=== PATIENT | male | born 1940 | race Caucasian/White ===

== ENCOUNTER 2019-03-05 13:16 | Observation (INO) | payer MEDICARE, OTHER ==
[2019-03-05 13:54] LABS: HEMATOCRIT 41.1 % (37.9-51.0); HEMOGLOBIN 13.5 g/dL (13.5-17.0); MEAN CORPUSCULAR HEMOGLOBIN 29.5 pg (27.0-33.4); MEAN CORPUSCULAR HGB CONC 32.9 g/dL (32.0-36.0); MEAN CORPUSCULAR VOLUME 90 fl (80-97); PLATELET COUNT 182 10^3/uL (150-450); RED BLOOD COUNT 4.59 10^6/uL (4.35-5.55); RED CELL DISTRIBUTION WIDTH 13.5 % (11.5-14.0); WHITE BLOOD COUNT 23.1 10^3/uL (4.0-10.5)
[2019-03-05 14:05] LABS: ALBUMIN 4.4 g/dL (3.5-5.0); ALKALINE PHOSPHATASE 85 U/L (38-126); ANION GAP 13 (5-19); ASPARTATE AMINO TRANSFERASE 24 U/L (17-59); BILIRUBIN,DIRECT 0.2 mg/dL (0.0-0.4); BILIRUBIN,TOTAL 0.7 mg/dL (0.2-1.3); BLOOD UREA NITROGEN 16 mg/dL (7-20); CALCIUM 9.5 mg/dL (8.4-10.2); CARBON DIOXIDE 27 mmol/L (22-30); CHLORIDE 101 mmol/L (98-107); CREATINE KINASE 103 U/L (55-170); GLUCOSE 103 mg/dL (75-110); POTASSIUM 4.5 mmol/L (3.6-5.0); TOTAL PROTEIN 7.5 g/dL (6.3-8.2)
[2019-03-05 14:15] LABS: CREATINE KINASE MB 1.76 ng/mL (<4.55)
[2019-03-05 14:16] LABS: TROPONIN I < 0.012 ng/mL
[2019-03-05 14:20] LABS: ABSOLUTE LYMPHOCYTES# (MANUAL) 1.6 10^3/uL (0.5-4.7); ABSOLUTE MONOCYTES # (MANUAL) 0.7 10^3/uL (0.1-1.4); BASOPHILS % (MANUAL) 0 % (0-2); EOSINOPHILS % (MANUAL) 2 % (0-6); LYMPHOCYTES % (MANUAL) 7 % (13-45); MONOCYTES % (MANUAL) 3 % (3-13); SEGMENTED NEUTROPHILS % (MAN) 88 % (42-78); TOTAL CELLS COUNTED 100
[2019-03-05 14:21] LABS: PLATELET COMMENT ADEQUATE; TOXIC GRANULATION 1+
--- NOTE | 2019-03-05 14:51 | RADIOLOGY REPORT (SQ) ---
EXAM DESCRIPTION: CHEST SINGLE VIEW COMPLETED DATE/TIME: 03/05/2019 2:39 pm REASON FOR STUDY: chest pain COMPARISON: None. EXAM PARAMETERS: NUMBER OF VIEWS: One view. TECHNIQUE: Single frontal radiographic view of the chest acquired. RADIATION DOSE: NA LIMITATIONS: None. FINDINGS: LUNGS AND PLEURA: Hyperlucent lungs are suggestive of emphysema. There is mild atelectasi s at the left lung base. No pleural effusion or pneumothorax. MEDIASTINUM AND HILAR STRUCTURES: No masses. Contour normal. HEART AND VASCULAR STRUCTURES: The heart is mildly enlarged. No overt vascular congestion. BONES: No acute findings. HARDWARE: None in the chest. IMPRESSION: Mild cardiomegaly. Emphysema. Mild left basilar atelectasis. TECHNICAL DOCUMENTATION: JOB ID: [id number] [id number] 2010 [employer]- All Rights Reserved Reading location - IP/workstation name: [email or web address]
--- NOTE | 2019-03-05 15:04 | ER Document Report ---
ED Cardiac - General TRAVEL OUTSIDE OF THE [place] IN LAST 30 DAYS: No - Related Data Home Medications: PT HAS MED LIST. <FREIDA LUX - Last Filed: 03/05/19 17:26> <DIONICIO SARGENT IV - Last Filed: 03/06/19 00:32> - General Chief Complaint: Chest Pain Stated Complaint: CHEST PAIN Time Seen by Provider: 03/05/19 15:00 - HPI Notes: 78 white male with history of pernicious anemia, hypertension, hyperlipidemia, depression on Wellbutrin, history of esophageal dilatation procedure per over a year ago secondary to difficulty with narrowed esophagus but who presents today with an episode of chest pain earlier in the day. He ate Cheerios this morning and then drove to bahai once he was in [place] after he had walked from the car and to into the service he noted some chest pain anteriorly he says that it was consistent not wavering in intensity or location during the entire service did not change with standing up or sitting down leaning forward. He denies any near or passing out. No palpitations. He then walked back to his car and drove home he said that did not make his symptoms worse and it did not make him have any feelings of shortness of breath, but then he did vomit twice once home. He said the chest pain did not change but was still present and so asked his if you to call EMS and EMS gave him 2 nitroglycerin he thinks that did improve his chest pain. He also received aspirin 324. Since he has been in the ER he has not had any pain. says that he has overall been in stable health he had a prostate biopsy about a week ago and that result is pending but patient and are able to co rroborate he has been not having any fevers chills sweats no difficulty laying flat no falls at all or any other trauma. No new cognitive issues or declines in function. has noted over time in the last few months that he does have some issues with swallowing his food, particularly ibuprofen speech sandwich the other day which said he had to going to the bathroom and ultimately was able to cough back up. She says that they need to follow-up with the GI doctors who dilated his esophagus because overall he does not have problems with eating but if he gets doing into much of a hurry he does and she wonders if the narrowing might be returning in some degree. He has no history of smoking, diabetes. (FREIDA LUX) - Related Data Allergies/Adverse Reactions: No Known Allergies Allergy (Unverified 03/05/19 14:00) Past Medical History - General Information source: Patient, Relative - Daughter and granddaughter. Very good historians no is extensive medical history and have access to his online portal showing previous labs at [facility], Outside Facility Records - Social History Smoking Status: Never Smoker Frequency of alcohol use: None Drug Abuse: None Lives with: Family Family History: None - Mom of liver cancer, father had chronic lung disease Patient has suicidal ideation: No Patient has homicidal ideation: No - Past Medical History Cardiac Medical History: Reports: Hx Hypercholesterolemia, Hx Hypertension Psychiatric Medical History: Reports: Hx Depression - TAKES MEDS Past Surgical History: Reports: Hx Cholecystectomy <FREIDA LUX - Last Filed: 03/05/19 17:26> Review of Systems - Review of Systems Constitutional: No symptoms reported EENT: See HPI, Difficulty swallowing Cardiovascular: See HPI Respiratory: No symptoms reported Gastrointestinal: See HPI, Vomiting. denies: Abdomen distended, Abdominal pain, Diarrhea, Nausea, Constipation - Bowel movements been regular last bowel movement was earlier this morning prior to leaving for bahai, Blood streaked bowels, Poor appetite, Poor fluid intake, Black stools, Rectal bleeding Genitourinary: No symptoms reported Male Genitourinary: No symptoms reported Musculoskeletal: No symptoms reported Skin: No symptoms reported Hematologic/Lymphatic: No symptoms reported Neurological/Psychological: No symptoms reported <FREIDA LUX - Last Filed: 03/05/19 17:26> Physical Exam - Vital signs Interpretation: Tachycardic - Borderline, 90s to 100. Unknown baseline blood pressures.. No: Hypertensive, Hypoxic, Tachypneic, Febrile - General General appearance: Appears well, Alert In distress: None - HEENT Head: Normocephalic, Atraumatic Eyes: Normal. No: Pale conjunctiva, Scleral icterus Conjunctiva: Normal Cornea: Normal Extraocular movements intact: Yes Eyelashes: Normal Pupils: PERRL Hearing loss: Sensorineural loss Sinus: No: Swelling, Tenderness Nasal: No: Carlos deformity, Purulent discharge Mouth/Lips: Normal. No: Lesions Mucous membranes: Dry Pharynx: Normal. No: Erythema, Tonsillar hypertrophy, Uvular edema Neck: Supple. No: Lymphadenopathy, Neck mass, Thyroid nodule, Thyromegally - Respiratory Respiratory status: No respiratory distress. No: Respiratory distress, Cyan osis, Depressed respirations, Retractions, Tachypnea Chest status: Nontender. No: Tender, Ecchymosis, No pleuritic chest pain, Pain on movement, Pain with deep breathing, Wounds, Accessory muscle use, Prolonged expirations Breath sounds: Normal Chest palpation: Normal - Cardiovascular Rhythm: Regular Heart sounds: Normal auscultation - Quiet precordium Murmur: No Pulses: Normal: Radial, Dorsalis pedis Normal capillary refill: Yes - Abdominal Inspection: Normal Distension: No distension Bowel sounds: Normal Tenderness: Nontender Organomegaly: No organomegaly - Back Back: Normal, Nontender. No: Deformity/step-off, CVA tenderness, Vertebra tenderness, Wounds - Extremities General upper extremity: Normal inspection, Nontender, Normal color, Normal ROM, Normal temperature General lower extremity: Normal inspection, Nontender, Normal color, Normal ROM, Normal temperature, Normal weight bearing. No: Min's sign - Neurological Neuro grossly intact: Yes Cognition: Normal Orientation: AAOx4 Joel Coma Scale Eye Opening: Spontaneous Joel Coma Scale Verbal: Oriented [place] Coma Scale Motor: Obeys Commands [place] Coma Scale Total: 15 Speech: Normal Motor strength normal: LUE, RUE, LLE, RLE Sensory: Normal - Psychological Associated symptoms: Normal affect - Makes jokes interactive pleasant patient. Makes jokes with family members., Normal mood - Skin Skin Temperature: Warm Skin Moisture: Dry Skin Color: Normal. negative: Dusky, Plethora Skin irregularity: negative: Lesion, Rash <FREIDA LUX - Last Filed: 03/05/19 17:26> - Vital signs Vitals: BP 115/61 03/05/19 13:28 Course - Laboratory Result Diagrams: 03/05/19 12:37 03/05/19 12:37 <FREIDA LUX - Last Filed: 03/05/19 17:26> - Laboratory Result Diagrams: 03/05/19 12:37 03/05/19 12:37 <DIONICIO SARGENT IV - Last Filed: 03/06/19 00:32> - Re-evaluation Re-evalutation: 03/05/19 15:01 EKG today is sinus tachycardia rate of 108 there is no prior for comparison yasmine lopez to me. The axis is leftward. QRS slightly delayed over 128 suggestive of right bundle branch block. Voltage within normal limits no ST elevations depressions or other signs of ischemia. Daughter is very great historian she says she has a history of right bundle branch block. Granddaughter is also able to pull up his last labs from July 2018 at [facility] that show his creatinine at 1.9 his GFR 40, white count of 9.9. Here his white count was markedly elevated with a white shift total leukocytes of 23. His other cell lines were within normal limits including H&H. His first troponin was undetectable. He continued to have no pain while in the emergency department. His initial 1 view chest x-ray was unremarkable do not see any consolidation or hu cardiomegaly again no comparison available. No effusions. Pending lateral view and urinalysis to consider reasons for this markedly go cytosis. His heart score is 3 and overall his story is on multiple confirmations with patient and family does not seem exertional in nature though still was associated with vomiting "improved with nitroglycerin". Signout to Dr. Parks as follow-up the chest x-ray serial troponin and EKG t hus second view of the chest x-ray and if all these are negative and do not have a good explanation of the leukocytosis from a cyst symptom standpoint if he is able to walk around the emergency department a few times with nurse on monitor has no symptoms return I am comfortable with his patient follow-up given he is connected with [facility] and his daughters and family are very involved in his care and follow-up. They are going to follow-up overall about his slowly increasing issues with swallowing foods but today I do not think that is necessarily the issue there is no evidence of aspiration pneumonitis or pneumonia. I have extensively talked to them though about the high white count being new and that we need to continue the work-up to make sure that is not due to something we can find right now in the urine or on the chest x-ray but it will be a close monitoring and watch game in the next day or 2 to ensure that there is no new symptoms like fever chills sweats worsening any pain at all any nausea or vomiting all in order to keep him out of the hospital but make sure that we are not taking any worse returns at all the next day. He does have evidence of urine infection, I would also be comfortable with discharge and outpatient antibiotic as long as were able to walk him without any symptoms at all and he still has no fevers and his vital signs are in stable and mild tachycardia improves after 500 cc of fluid. 03/05/19 17:33 (FREIDA LUX) 03/06/19 00:31 Results of lipase and CT of the abdomen discussed with patient and patient's significant other. Question was asked by this MD if they were still willing to be admitted for observation given the patient's chest pain, elevated white count, relief of chest pain with nitroglycerin. They agreed to admission. (DIONICIO SARGENT IV) - Vital Signs Vital signs: Temp Pulse Resp BP Pulse Ox 98.5 F 98 23 H 115/62 93 03/05/19 18:06 03/05/19 22:13 03/05/19 22:09 03/05/19 22:09 03/05/19 22:13 - Laboratory Laboratory results interpreted by me: 03/05/19 03/05/19 03/05/19 12:37 12:37 16:44 WBC 23.1 H Seg Neuts % (Manual) 88 H Lymphocytes % (Manual) 7 L Abs Neuts (Manual) 20.3 H Creatinine 1.70 H Est GFR ( Amer) 48 L Est GFR (MDRD) Non-Af 39 L Urine Ketones TRACE H Urine Urobilinogen 2.0 H Discharge <FREIDA LUX - Last Filed: 03/05/19 17:26> - Discharge Admitting Provider: Dmitriy (Hospitalist) <DIONICIO SARGENT IV - Last Filed: 03/06/19 00:32> - Discharge Clinical Impression: Chest pain, Vomiting, Leukocytosis, Chronic renal disease, stage 3, moderately decreased glomerular filtration rate (GFR) between 30-59 mL/min/1.73 square meter Condition: Fair Disposition: ADMITTED OBSERVATION
[2019-03-05] MEDS ORDERED: RINGERS SOLUTION,LACTATED 500 ML IV ONE (16:56)
[2019-03-05 17:06] LABS: APPEARANCE,URINE CLEAR; BILIRUBIN,URINE NEGATIVE (NEGATIVE); COLOR,URINE YELLOW; GLUCOSE, URINE NEGATIVE (NEGATIVE); KETONES,URINE TRACE mg/dL (NEGATIVE); LEUKOCYTE ESTERASE,URINE NEGATIVE (NEGATIVE); NITRITE,URINE NEGATIVE (NEGATIVE); PROTEIN,URINE NEGATIVE (NEGATIVE); URINE SPECIFIC GRAVITY 1.016
--- NOTE | 2019-03-05 17:11 | RADIOLOGY REPORT (SQ) ---
EXAM DESCRIPTION: CHEST 2 VIEWS COMPLETED DATE/TIME: 03/05/2019 4:51 pm REASON FOR STUDY: chest pain COMPARISON: Chest x-ray 03/05/2019 at 14:23 hours EXAM PARAMETERS: NUMBER OF VIEWS: two views TECHNIQUE: Digital Frontal and Lateral radiographic views of the chest acquired on 03/05/2019 at 16:48 hours. RADIATION DOSE: NA LIMITATIONS: none FINDINGS: LUNGS AND PLEURA: No consolidation, pneumothorax or pleural effusion. MEDIASTINUM AND HILAR STRUCTURES: No masses or contour abnormalities. HEART AND VASCULAR STRUCTURES: The heart is mildly enlarged. No overt vascular congestion. BONES: Multilevel degenerative changes at the spine. Remote deformities at the left ribs. HARDWARE: Surgical clips are noted at the right upper quadrant. IMPRESSION: Mild cardiomegaly. No consolidation or pleural effusion. TECHNICAL DOCUMENTATION: JOB ID: [id number] [id number] 2010 [employer]- All Rights Reserved Reading location - IP/workstation name: [email or web address]
[2019-03-05] MEDS ORDERED: NORMAL SALINE 500 ML IV ONE (21:45)
--- NOTE | 2019-03-05 23:43 | EKG REPORT ---
SEVERITY:- ABNORMAL ECG - SINUS TACHYCARDIA RBBB AND LAFB : Confirmed by: Doris Vick MD 05-Mar-2019 23:41:45
--- NOTE | 2019-03-05 23:50 | RADIOLOGY REPORT (SQ) ---
EXAM DESCRIPTION: CT abdomen and pelvis without contrast CLINICAL HISTORY: 78 years Male, nausea, vomiting, chest pain COMPARISON: None. TECHNIQUE: Axial images of the abdomen and pelvis were performed without the use of intravenous contrast, with sagittal and coronal reformatted images. This exam was performed according to our departmental dose-optimization program which includes use of Automated Exposure Control, adjustment of the mA and/or kV according to patient size and/or use of iterative reconstruction technique. FINDINGS: There is diverticulosis without diverticulitis. There are atherosclerotic changes involving the abdominal aorta, but there is no aneurysm. The appendix appears normal. No evidence of bowel obstruction. There is no significant radiographic abnormality of the liver, spleen, pancreas, adrenal glands or kidneys. There is a small left renal cyst. There is mild bibasilar atelectasis. There is a micronodule at the anterior right lung base. IMPRESSION: No acute finding. Other findings as described.
[2019-03-06] MEDS ORDERED: ACETAMINOPHEN 325 MG TABLET PO PRN (00:56)
[2019-03-06] MEDS ORDERED: MAG HYDROX/AL HYDROX/SIMETH SUSP 30 ML UDCUP PO PRN (00:56)
[2019-03-06] MEDS ORDERED: NITROGLYCERIN 0.4 MG/TAB 25 TAB/BOTTLE SL PRN (00:56)
[2019-03-06 02:03] LABS: CHOLESTEROL 110.18 mg/dL (0-200); TRIGLYCERIDES 84 mg/dL (<150)
[2019-03-06 02:15] LABS: DIRECT LDL 59 mg/dL (<100)
--- NOTE | 2019-03-06 04:21 | PDOC H&P ---
History of Present Illness Admission Date/PCP: 03/06/19 01:12 Patient complains of: Chest pain History of Present Illness: MANUEL CARRINGTON is a 78 year old male with a past medical history of hypertension, right bundle branch block and chronic kidney disease who presents with 2 hours of dull 3 out of 5 nonradiating chest pain occurring [facility] associated with nausea and vomiting of gastric content and diaphoresis. There is no palpitations or shortness of breath however his pain was relieved by nitroglycerin by EMS. In the emergency room he remains pain-free and is found to have leukocytosis of 23,000 a creatinine at baseline, unremarkable CT a bdomen. Patient denies previous episode, fever, cough, constipation or diarrhea. He states he feels great he has had troponins below detected level but is referred to the hospitalist for observation. Past Medical History Cardiac Medical History: Reports: Hyperlipidema, Hypertension Renal/ Medical History: Reports: Chronic Kidney Disease Psychiatric Medical History: Reports: Depression - TAKES MEDS Hematology: Reports: Anemia - PERNICIOUS ANEMIA Past Surgical History Past Surgical History: Reports: Cholecystectomy Social History Information Source: Patient Lives with: Family Smoking Status: Never Smoker Frequency of Alcohol Use: None Drugs: None - Advance Directive Resuscitation Status: Full Code Family History Family History: Hypertension Parental Family History Reviewed: Yes Children Family History Reviewed: Yes Sibling(s) Family History Reviewed.: Yes Medication/Allergy Home Medications: Bupropion HCl [Wellbutrin Xl 150 mg 24hr Tablet] 1 tab PO DAILY 03/05/19 Cholecalciferol (Vitamin D3) [Vitamin D3 1000 unit Chewable Tablet] 1,000 unit PO DAILY 03/05/19 Folic Acid 1 mg PO DAILY 03/05/19 Lisinopril [Prinivil 10 mg Tablet] 5 mg PO DAILY 03/05/19 [place]-3 Fatty Acids/Fish Oil [Fish Oil 1,000 mg Capsule] 1,000 mg PO TID 03/05/19 Omeprazole Magnesium [Prilosec Otc] 20 mg PO DAILY 03/05/19 Spironolactone [Aldactone 25 mg Tablet] 25 mg PO DAILY 03/05/19 Ubidecarenone [Coq-10] 100 mg PO DAILY 03/05/19 Allergies/Adverse Reactions: No Known Allergies Allergy (Unverified 03/05/19 14:00) Review of Systems Constitutional: ABSENT: chills, fever(s), headache(s), weight gain, weight loss Eyes: ABSENT: visual disturbances Ears: ABSENT: hearing changes Cardiovascular: ABSENT: chest pain, dyspnea on exertion, edema, orthropnea, palpitations Respiratory: ABSENT: cough, hemoptysis Gastrointestinal: ABSENT: abdominal pain, constipation, diarrhea, hematemesis, hematochezia, nausea, vomiting Genitourinary: ABSENT: dysuria, hematuria Musculoskeletal: ABSENT: joint swelling Integumentary: ABSENT: rash, wounds Neurological: ABSENT: abnormal gait, abnormal speech, confusion, dizziness, focal weakness, syncope Psychiatric: ABSENT: anxiety, depression, homidical ideation, suicidal ideation Endocrine: ABSENT: cold intolerance, heat intolerance, polydipsia, polyuria Hematologic/Lymphatic: ABSENT: easy bleeding, easy bruising Physical Exam Vital Signs: Temp Pulse Resp BP Pulse Ox 98.6 F 88 18 112/63 100 03/06/19 01:32 03/06/19 01:32 03/06/19 01:32 03/06/19 01:32 03/06/19 01:32 Intake & Output 03/04/19 03/05/19 03/06/19 11:59 11:59 11:59 Intake Total 500 Balance 500 Weight 60.3 kg General appearance: PRESENT: no acute distress, well-developed, well-nourished Head exam: PRESENT: atraumatic, normocephalic Eye exam: PRESENT: conjunctiva pink, EOMI, PERRLA. ABSENT: scleral icterus Ear exam: PRESENT: normal external ear exam Mouth exam: PRESENT: moist, tongue midline Neck exam: ABSENT: carotid bruit, JVD, lymphadenopathy, thyromegaly Respiratory exam: PRESENT: clear to auscultation kai. ABSENT: rales, rhonchi, w heezes Cardiovascular exam: PRESENT: RRR. ABSENT: diastolic murmur, rubs, systolic murmur Pulses: PRESENT: normal dorsalis pedis pul Vascular exam: PRESENT: normal capillary refill GI/Abdominal exam: PRESENT: normal bowel sounds, soft. ABSENT: distended, guarding, mass, organolmegaly, rebound, tenderness Rectal exam: PRESENT: deferred Extremities exam: PRESENT: full ROM. ABSENT: calf tenderness, clubbing, pedal edema Neurological exam: PRESENT: alert, awake, oriented to person, oriented to place, oriented to time, oriented to situation, CN II-XII grossly intact. ABSENT: motor sensory deficit Psychiatric exam: PRESENT: appropriate affect, normal mood. ABSENT: homicidal ideation, suicidal ideation Skin exam: PRESENT: dry, intact, warm. ABSENT: cyanosis, rash Results Laboratory Results: 03/05/19 12:37 03/05/19 12:37 03/05/19 03/05/19 03/05/19 12:37 12:37 12:37 WBC 23.1 H RBC 4.59 Hgb 13.5 Hct 41.1 MCV 90 MCH 29.5 MCHC 32.9 RDW 13.5 Plt Count 182 Seg Neutrophils % Not Reportable Sodium 140.7 Potassium 4.5 Chloride 101 Carbon Dioxide 27 Anion Gap 13 BUN 16 Creatinine 1.70 H Est GFR ( Amer) 48 L Glucose 103 Calcium 9.5 Total Bilirubin 0.7 AST 24 Alkaline Phosphatase 85 Total Protein 7.5 Albumin 4.4 Triglycerides Cholesterol LDL Cholesterol Direct VLDL Cholesterol HDL Cholesterol Lipase 173.2 TSH Urine Color Urine Appearance Urine pH Ur Specific [place] Urine Protein Urine Glucose (UA) Urine Ketones Urine Blood Urine Nitrite Ur Leukocyte Esterase Urine WBC (Auto) Urine RBC (Auto) 03/05/19 03/06/19 03/06/19 16:44 01:15 01:15 WBC RBC Hgb Hct MCV MCH MCHC RDW Plt Count Seg Neutrophils % Sodium Potassium Chloride Carbon Dioxide Anion Gap BUN Creatinine Est GFR ( Amer) Glucose Calcium Total Bilirubin AST Alkaline Phosphatase Total Protein Albumin Triglycerides 84 Cholesterol 110.18 LDL Cholesterol Direct 59 VLDL Cholesterol 17.0 HDL Cholesterol 39 L Lipase TSH 2.46 Urine Color YELLOW Urine Appearance CLEAR Urine pH 6.0 Ur Specific [place] 1.016 Urine Protein NEGATIVE Urine Glucose (UA) NEGATIVE Urine Ketones TRACE H Urine Blood NEGATIVE Urine Nitrite NEGATIVE Ur Leukocyte Esterase NEGATIVE Urine WBC (Auto) 1 Urine RBC (Auto) 2 03/05/19 03/05/19 03/05/19 12:37 12:37 13:38 Creatine Kinase 103 CK-MB (CK-2) 1.76 Troponin I < 0.012 < 0.012 03/05/19 03/06/19 17:55 01:15 Creatine Kinase CK-MB (CK-2) Troponin I < 0.012 < 0.012 Impressions: Chest X-Ray 03/05/19 16:00 IMPRESSION: Mild cardiomegaly. No consolidation or pleural effusion. Abdomen/Pelvis CT 03/05/19 22:31 IMPRESSION: No acute finding. Other findings as described. Assessment and Plan - Diagnosis (1) Atypical chest pain Is this a current diagnosis for this admission?: Yes Plan: Atypical chest pain though the patient's pain is atypical there are multiple risk factors for coronary artery disease and subsequently will observe and evaluation of acute coronary syndrome versus coronary artery disease with anginal equivalents. Cardiac monitoring blood pressure Q6 hours ,TSH, lipid profile, serial cardiac enzymes and cardiac stress test (2) Chronic renal disease, stage 3, moderately decreased glomerular filtration rate (GFR) between 30-59 mL/min/1.73 square meter Is this a current diagnosis for this admission?: Yes Plan: Avoid nephrotoxic meds and doses, follow-up chemistry (3) Leukocytosis Is this a current diagnosis for this admission?: Yes Plan: Possibly a stress reaction to nausea vomiting. No fever or bandemia, follow-up CBC
[2019-03-06 08:16] LABS: ABSOLUTE BASOPHILS # (AUTO) 0.1 10^3/uL (0.0-0.2); ABSOLUTE EOSINOPHILS # (AUTO) 0.1 10^3/uL (0.0-0.6); ABSOLUTE LYMPHOCYTES (AUTO) 1.9 10^3/uL (0.5-4.7); ABSOLUTE MONOCYTES (AUTO) 1.5 10^3/uL (0.1-1.4); ABSOLUTE NEUT (AUTO) 8.9 10^3/uL (1.7-8.2); BASOPHILS % (AUTO) 0.4 % (0-2); EOSINOPHILS % (AUTO) 1.1 % (0-6); HEMATOCRIT 36.7 % (37.9-51.0); LYMPHOCYTES % (AUTO) 15.4 % (13-45); MEAN CORPUSCULAR HEMOGLOBIN 29.3 pg (27.0-33.4); MEAN CORPUSCULAR HGB CONC 32.8 g/dL (32.0-36.0); MEAN CORPUSCULAR VOLUME 90 fl (80-97); MONOCYTES % (AUTO) 12.1 % (3-13); PLATELET COUNT 149 10^3/uL (150-450); RED CELL DISTRIBUTION WIDTH 13.5 % (11.5-14.0); TOTAL CELLS COUNTED % (AUTO) 100 %; WHITE BLOOD COUNT 12.5 10^3/uL (4.0-10.5)
[2019-03-06 08:33] LABS: ANION GAP 9 (5-19); BLOOD UREA NITROGEN 16 mg/dL (7-20); CALCIUM 8.8 mg/dL (8.4-10.2); CARBON DIOXIDE 26 mmol/L (22-30); CHLORIDE 104 mmol/L (98-107); GLUCOSE 91 mg/dL (75-110)
[2019-03-06] MEDS ORDERED: LISINOPRIL 10 MG TABLET PO SCH (10:00)
[2019-03-06] MEDS ORDERED: (PENDING PHARMACY ID) (Bupropion Hcl [Wellbutrin Xl 150 Mg 24hr Tablet] 1 TAB) PO SCH (10:00)
[2019-03-06] MEDS ORDERED: BUPROPION HCL 75 MG TABLET PO SCH (10:00)
[2019-03-06] MEDS ORDERED: ASPIRIN 81 MG TABLET, ENT COATED PO SCH (10:00)
[2019-03-06] MEDS ORDERED: REGADENOSON INJ 0.4 MG/5 ML DISP.SYRIN IV ONE (10:56)
[2019-03-06 18:06] VITALS: BP 110/60
--- NOTE | 2019-03-06 21:39 | DRAGON STRESS TEST REPORT ---
Intravenous Lexiscan Cardiolite stress test using single photon emmision computerized tomography. Date of procedure: 03/06/2019. Ordering Provider: Dr. Omega Izaguirre.Patient's status In Patient Indication: Chest pain. Coronary risk factors: Age, hypertension, and dyslipidemia. Resting EKG: Sinus Rhythm. Right Bundle Branch Block pattern. Stress EKG: No changes of ischemia. The patient has no chest pain or discomfort, and there were no arrhythmias seen. Reason for termination: Protocol. Conclusions: Normal EKG and hemodynamic response to IV Lexiscan. Nuclear data: At rest the patient was given 10.80 millicuries of technetium 99m sestamibi injected intravenously. As per protocol rest non gated SPECT images were obtained. Subsequently the patient was given intravenous Lexiscan at a dose of 0.4 mg in 5 mL intravenously, followed by flush with normal saline. Subsequently the stress dose of 31.5 millicuries of technetium 99m sestamibi was injected intravenously. As per protocol stress gated images were obtained. Nuclear interpretation: Review of images showed that there is a mild soft tissue attenuation artifact due to bowel contamination involving both the rest and stress images of the inferior wall. This area has normal motion contraction thickening, and incidence of soft tissue attenuation artifact. The rest of the segments of the myocardium had normal perfusion at rest, and normal perfusion post stress with IV Lexiscan. All segments of the myocardium had normal motion, contraction, and thickening by gated study. T. I D. ratio was read by the computer as abnormal at 1.37. This is not reliable. Visually the T IE ratio is normal there is no transient ischemic dilatation of the left ventricle. Computer read rest, and stress left ventricular ejection fraction were 65 %, and 59 %, respectively. Conclusion: 1. There is no scintigraphic evidence of Lexiscan induced myocardial ischemia. 2. There is no scintigraphic evidence of myocardial infarction/scar. 3. There is mild soft tissue attenuation artifact due to bowel contamination involving the inferior wall. Recommendations: Aggressive risk factor modification, and treating the underlying co- morbidities. MTDD
[2019-03-06] MEDS ORDERED: ATORVASTATIN CALCIUM 40 MG TABLET PO SCH (22:00)
--- NOTE | 2019-03-13 17:11 | PDOC DISCHARGE SUMMARY ---
Impression - Admit/DC Date/PCP Admission Date/Primary Care Provider: 03/06/19 01:12 Discharge Date: 03/06/19 - Discharge Diagnosis (1) Atypical chest pain Is this a current diagnosis for this admission?: Yes (2) Chronic renal disease, stage 3, moderately decreased glomerular filtration rate (GFR) between 30-59 mL/min/1.73 square meter Is this a current diagnosis for this admission?: Yes - Additional Information Resuscitation Status: Full Code Referrals: DIRK HEARD,THOMAS Frausto MD [NO LOCAL MD] - (We will make an appointment for you and contact you with the date and time. Thank you and have a great day!) Prescriptions: Pantoprazole Sodium [Protonix [address] Tablet] 40 mg PO QAM #30 tablet. Home Medications: Bupropion HCl [Wellbutrin Xl 150 mg 24hr Tablet] 1 tab PO DAILY 03/05/19 Cholecalciferol (Vitamin D3) [Vitamin D3 1000 unit Chewable Tablet] 1,000 unit PO DAILY 03/05/19 Folic Acid 1 mg PO DAILY 03/05/19 Lisinopril [Prinivil 10 mg Tablet] 5 mg PO DAILY 03/05/19 [place]-3 Fatty Acids/Fish Oil [Fish Oil 1,000 mg Capsule] 1,000 mg PO QPM 03/05/19 Spironolactone [Aldactone 25 mg Tablet] 25 mg PO Q2D 03/05/19 Ubidecarenone [Coq-10] 100 mg PO DAILY 03/05/19 Atorvastatin Calcium [Lipitor 20 mg Tablet] 20 mg PO QHS 03/06/19 Cyanocobalamin (Vitamin B-12) [Vitamin B-12 Inj 1000 Mcg/1 ml Vial] 1,000 mcg IM .1503/06/19 [place]-3/Dha/Epa/Fish Oil [Fish Oil 1,000 mg Softgel] 1,000 mg PO QPM 03/06/19 [place]-3/Dha/Epa/Fish Oil [Fish Oil 1,000 mg Softgel] 2,000 mg PO QAM 03/06/19 Pantoprazole Sodium [Protonix [address] Tablet] 40 mg PO QAM #30 tablet. 03/06/19 History of Present Illiness History of Present Illness: Admitting hospitalist's H&P: MANUEL CARRINGTON is a 78 year old male with a past medical history of hypertension, right bundle branch block and chronic kidney disease who presents with 2 hours of dull 3 out of 5 nonradiating chest pain occurring while at [facility] associated with nausea and vomiting of gastric content and diaphoresis. There is no palpitations or shortness of breath however his pain was relieved by nitroglycerin by EMS. In the emergency room he remains pain-free and is found to have leukocytosis of 23,000 a creatinine at baseline, unremarkable CT abdomen. Patient denies previous episode, fever, cough, constipation or diarrhea. He states he feels great he has had troponins below detected level but is referred to the hospitalist for observation. Hospital Course Hospital Course: This is 78-year-old male who was admitted for chest pain. His troponins and EKGs were cycled and came back unremarkable. Stress testing was pursued and is also came back unremarkable. He had a slightly elevated d-dimer but on age adjustment, d-dimer is normal for age. He did not complain of any shortness of breath. He ambulated the hallways on room air without any desaturation or acute issues. He takes omeprazole 20 mg daily for GERD at home. Will switch this to Protonix on discharge and see if he gets relief. He will closely follow-up with his PCP to reassess response. Physical Exam Vital Signs: Temp Pulse Resp BP Pulse Ox 98 F 80 18 110/60 92 03/06/19 16:00 03/06/19 16:00 03/06/19 16:00 03/06/19 16:00 03/06/19 16:00 Intake & Output 03/05/19 03/06/19 03/07/19 06:59 06:59 06:59 Intake Total 500 458 Balance 500 458 Weight 297 lb 9.985 oz General appearance: PRESENT: no acute distress, well-developed, well-nourished Head exam: PRESENT: atraumatic, normocephalic Eye exam: PRESENT: conjunctiva pink, EOMI, PERRLA. ABSENT: scleral icterus Ear exam: PRESENT: normal external ear exam Mouth exam: PRESENT: moist, tongue midline Neck exam: ABSENT: carotid bruit, JVD, lymphadenopathy, thyromegaly Respiratory exam: PRESENT: clear to auscultation kai. ABSENT: rales, rhonchi, wheezes Cardiovascular exam: PRESENT: RRR. ABSENT: diastolic murmur, rubs, systolic murmur Pulses: PRESENT: normal dorsalis pedis pul GI/Abdominal exam: PRESENT: normal bowel sounds, soft. ABSENT: distended, guarding, mass, organolmegaly, rebound, tenderness Rectal exam: PRESENT: deferred Neurological exam: PRESENT: alert, awake, oriented to person, CN II-XII grossly intact. ABSENT: motor sensory deficit Results Laboratory Results: WBC 12.5 10^3/uL (4.0-10.5) H 03/06/19 07:09 RBC 4.10 10^6/uL (4.35-5.55) L 03/06/19 07:09 Hgb 12.0 g/dL (13.5-17.0) L 03/06/19 07:09 Hct 36.7 % (37.9-51.0) L 03/06/19 07:09 MCV 90 fl (80-97) 03/06/19 07:09 MCH 29.3 pg (27.0-33.4) 03/06/19 07:09 MCHC 32.8 g/dL (32.0-36.0) 03/06/19 07:09 RDW 13.5 % (11.5-14.0) 03/06/19 07:09 Plt Count 149 10^3/uL (150-450) L 03/06/19 07:09 Lymph % (Auto) 15.4 % (13-45) 03/06/19 07:09 [place] % (Auto) 12.1 % (3-13) 03/06/19 07:09 Eos % (Auto) 1.1 % (0-6) 03/06/19 07:09 Baso % (Auto) 0.4 % (0-2) 03/06/19 07:09 Absolute Neuts (auto) 8.9 10^3/uL (1.7-8.2) H 03/06/19 07:09 Absolute Lymphs (auto) 1.9 10^3/uL (0.5-4.7) 03/06/19 07:09 Absolute Monos (auto) 1.5 10^3/uL (0.1-1.4) H 03/06/19 07:09 Absolute Eos (auto) 0.1 10^3/uL (0.0-0.6) 03/06/19 07:09 Absolute Basos (auto) 0.1 10^3/uL (0.0-0.2) 03/06/19 07:09 Total Counted 100 03/05/19 12:37 Seg Neutrophils % 71.0 % (42-78) 03/06/19 07:09 Seg Neuts % (Manual) 88 % (42-78) H 03/05/19 12:37 Lymphocytes % (Manual) 7 % (13-45) L 03/05/19 12:37 Monocytes % (Manual) 3 % (3-13) 03/05/19 12:37 Eosinophils % (Manual) 2 % (0-6) 03/05/19 12:37 Basophils % (Manual) 0 % (0-2) 03/05/19 12:37 Abs Neuts (Manual) 20.3 10^3/uL (1.7-8.2) H 03/05/19 12:37 Abs Lymphs (Manual) 1.6 10^3/uL (0.5-4.7) 03/05/19 12:37 Abs Monocytes (Manual) 0.7 10^3/uL (0.1-1.4) 03/05/19 12:37 Absolute Eos (Manual) 0.5 10^3/uL (0.0-0.6) 03/05/19 12:37 Abs Basophils (Manual) 0.0 10^3/uL (0.0-0.2) 03/05/19 12:37 Toxic Granulation 1+ 03/05/19 12:37 Platelet Comment ADEQUATE 03/05/19 12:37 D-Dimer 0.92 ug/mL (0.00-0.50) H 03/06/19 15:48 Sodium 139.1 mmol/L (137-145) 03/06/19 07:09 Potassium 4.0 mmol/L (3.6-5.0) 03/06/19 07:09 Chloride 104 mmol/L (98-107) 03/06/19 07:09 Carbon Dioxide 26 mmol/L (22-30) 03/06/19 07:09 Anion Gap 9 (5-19) 03/06/19 07:09 BUN 16 mg/dL (7-20) 03/06/19 07:09 Creatinine 1.55 mg/dL (0.52-1.25) H 03/06/19 07:09 Est GFR ( Amer) 53 (>60) L 03/06/19 07:09 Est GFR (MDRD) Non-Af 44 (>60) L 03/06/19 07:09 Glucose 91 mg/dL (75-110) 03/06/19 07:09 Calcium 8.8 mg/dL (8.4-10.2) 03/06/19 07:09 Total Bilirubin 0.7 mg/dL (0.2-1.3) 03/05/19 12:37 Direct Bilirubin 0.2 mg/dL (0.0-0.4) 03/05/19 12:37 Neonat Total Bilirubin Not Reportable 03/05/19 12:37 Neonat Direct Bilirubin Not Reportable 03/05/19 12:37 Neonat Indirect Bili Not Reportable 03/05/19 12:37 AST 24 U/L (17-59) 03/05/19 12:37 ALT 17 U/L (<50) 03/05/19 12:37 Alkaline Phosphatase 85 U/L (38-126) 03/05/19 12:37 Creatine Kinase 103 U/L (55-170) 03/05/19 12:37 CK-MB (CK-2) 1.76 ng/mL (<4.55) 03/05/19 12:37 Troponin I < 0.012 ng/mL 03/06/19 13:46 Total Protein 7.5 g/dL (6.3-8.2) 03/05/19 12:37 Albumin 4.4 g/dL (3.5-5.0) 03/05/19 12:37 Triglycerides 84 mg/dL (<150) 03/06/19 01:15 Cholesterol 110.18 mg/dL (0-200) 03/06/19 01:15 LDL Cholesterol Direct 59 mg/dL (<100) 03/06/19 01:15 VLDL Cholesterol 17.0 mg/dL (10-31) 03/06/19 01:15 HDL Cholesterol 39 mg/dL (>40) L 03/06/19 01:15 Lipase 173.2 U/L (23-300) 03/05/19 12:37 TSH 2.46 uIU/mL (0.47-4.68) 03/06/19 01:15 Urine Color YELLOW 03/05/19 16:44 Urine Appearance CLEAR 03/05/19 16:44 Urine pH 6.0 (5.0-9.0) 03/05/19 16:44 Ur Specific [place] 1.016 03/05/19 16:44 Urine Protein NEGATIVE mg/dL (NEGATIVE) 03/05/19 16:44 Urine Glucose (UA) NEGATIVE mg/dL (NEGATIVE) 03/05/19 16:44 Urine Ketones TRACE mg/dL (NEGATIVE) H 03/05/19 16:44 Urine Blood NEGATIVE (NEGATIVE) 03/05/19 16:44 Urine Nitrite NEGATIVE (NEGATIVE) 03/05/19 16:44 Urine Bilirubin NEGATIVE (NEGATIVE) 03/05/19 16:44 Urine Urobilinogen 2.0 mg/dL (<2.0) H 03/05/19 16:44 Ur Leukocyte Esterase NEGATIVE (NEGATIVE) 03/05/19 16:44 Urine WBC (Auto) 1 /HPF 03/05/19 16:44 Urine RBC (Auto) 2 /HPF 03/05/19 16:44 Urine Mucus (Auto) RARE /LPF 03/05/19 16:44 Urine Ascorbic Acid NEGATIVE (NEGATIVE) 03/05/19 16:44 03/05/19 03/05/19 03/05/19 12:37 13:38 17:55 CK-MB (CK-2) 1.76 Troponin I < 0.012 < 0.012 < 0.012 03/06/19 03/06/19 03/06/19 01:15 07:09 13:46 CK-MB (CK-2) Troponin I < 0.012 < 0.012 < 0.012 Impressions: Chest X-Ray 03/05/19 13:20 IMPRESSION: Mild cardiomegaly. Emphysema. Mild left basilar atelectasis. Chest X-Ray 03/05/19 16:00 IMPRESSION: Mild cardiomegaly. No consolidation or pleural effusion. Abdomen/Pelvis CT 03/05/19 22:31 IMPRESSION: No acute finding. Other findings as described. Stroke Is this a Stroke Patient?: No Acute Heart Failure - Is this a Heart Failure Patient?: No
== END 2019-03-06 18:45 | disposition home or self-care (01) ==
LOC: ER 13:16 → EH 03-06 01:12 → 4W 03-06 01:56
PROVIDERS: ADMIT Internal Medicine; ATTEND Internal Medicine
DX: R07.89 Other chest pain (principal); N18.3 Chronic kidney disease, stage 3 (moderate); I12.9 Hypertensive chronic kidney disease with stage 1 through stage 4 chronic kidney disease, or unspecified chronic kidney disease; I45.10 Unspecified right bundle-branch block; R11.2 Nausea with vomiting, unspecified; R61 Generalized hyperhidrosis; D72.829 Elevated white blood cell count, unspecified; K21.9 Gastro-esophageal reflux disease without esophagitis; J43.9 Emphysema, unspecified; J98.11 Atelectasis; I51.7 Cardiomegaly; F32.9 Major depressive disorder, single episode, unspecified; R13.10 Dysphagia, unspecified; R00.0 Tachycardia, unspecified; Z79.899 Other long term (current) drug therapy; Z90.49 Acquired absence of other specified parts of digestive tract; Z82.49 Family history of ischemic heart disease and other diseases of the circulatory system; Z98.890 Other specified postprocedural states; Z80.0 Family history of malignant neoplasm of digestive organs
CPT/HCPCS: 93005; 99285; 96360; 36415 ×2; 82553; 82550; 83690; 84443; 85025 ×2; 80048; 80053; 81001; 84484 ×2; 85379; 80061; 93017; 71046; 71045; 78452; 74176; 93010; G0378 ×2; A9500; J2785; A9270 ×2; J3490; J7120; Q9969